=== PATIENT | female | born 1930 | race Two or more races ===

== ENCOUNTER 2018-06-02 10:20 | Inpatient (IN) | payer MEDICARE, MEDICAID ==
[~2018-06-02] VITALS: Ht 165.1 cm; Wt 81.6 kg
--- NOTE | 2018-06-02 10:35 | Emergency Room Report ---
History of Present Illness General Chief Complaint: Back Pain-No Injury Source: Patient Present Illness HPI Patient present with complaints of swelling to both of her legs Patient reports that she has had back problems in the past however over the past 2-3 days she has had increased pain with standing up this morning was unable to ambulate Patient reports that she has arrived here from [place] 2 weeks ago does not have a physician here Denies any chest pain she does get some shortness of breath with increased exertion Patient reports taking pain medicine for her lower back Denies any other cardiac medications Denies any neuropathy denies any loss of control of bowel/urination Allergies: Coded Allergies: STREPTOMYCIN (Verified Allergy, Unknown, 06/02/18) Patient History Past Medical History: see triage record Pertinent Family History: none Last Menstrual Period: NA Reviewed Nursing Documentation: PMH: Agreed; PSxH: Agreed Nursing Documentation-PMH Past Medical History: No History, Except For Hx Cardiac Problems: Yes - HIGH CHOLESTEROL Hx Hypertension: Yes Hx Diabetes: Yes Review of Systems All Other Systems: negative except mentioned in HPI Physical Exam Vital Signs Date Time Temp Pulse Resp B/P (MAP) Pulse Ox O2 Delivery O2 Flow Rate FiO2 06/02/18 10:16 97.7 65 18 117/60 98 Room Air Sp02 EP Interpretation: reviewed, normal General Appearance: mild distress - In pain Head: normocephalic, atraumatic Eyes: bilateral eye PERRL, bilateral eye EOMI ENT: hearing grossly normal, normal pharynx, TMs + canals normal, uvula midline Neck: full range of motion, supple, no meningismus, no bony tend Respiratory: lungs clear, normal breath sounds, no rhonchi, no respiratory distress, no retraction, no accessory muscle use Cardiovascular #1: normal peripheral pulses, regular rate, rhythm, no gallop, no JVD, no murmur Gastrointestinal: normal bowel sounds, non tender, soft, no mass, no organomegaly, non-distended, no guarding, no hernia, no pulsatile mass, no rebound Genitourinary: no CVA tenderness Musculoskeletal: other - Increased discomfort in the right posterior superior iliac crest on palpation, midline does not show any step-offs patient able to extend and flex both feet, right lower back pain increase with flexion of the hip Neurologic: oriented x3, responsive, 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 III-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 nml as tested, sensory intact Psychiatric: mood/affect normal Skin: warm/dry, palpation normal, other - Dependent edema both ankles and feet Lymphatic: normal inspection, no adenopathy Medical Decision Making Diagnostic Impression: Primary Impression: Intractable back pain Additional Impressions: Weakness Unable to ambulate ER Course Multiple differentials considered Including but not limited to neurological, neurosurgical, orthopedic, infectious pathology Patient does have history of previous back disease There are no focal findings at this time requiring emergency MRI however patient has continued discomfort Given her age and comorbidities requires further inpatient care and evaluation Labs Test 06/02/18 10:32 06/02/18 11:07 White Blood Count 3.8 K/UL (4.8-10.8) Red Blood Count 4.62 M/UL (4.20-5.40) Hemoglobin 12.2 G/DL (12.0-16.0) Hematocrit 38.7 % (37.0-47.0) Mean Corpuscular Volume 84 FL (80-99) Mean Corpuscular Hemoglobin 26.5 PG (27.0-31.0) Mean Corpuscular Hemoglobin Concent 31.6 G/DL (32.0-36.0) Red Cell Distribution Width 12.7 % (11.6-14.8) Platelet Count 174 K/UL (150-450) Mean Platelet Volume 7.6 FL (6.5-10.1) Neutrophils (%) (Auto) 57.9 % (45.0-75.0) Lymphocytes (%) (Auto) 24.6 % (20.0-45.0) Monocytes (%) (Auto) 13.2 % (1.0-10.0) Eosinophils (%) (Auto) 3.3 % (0.0-3.0) Basophils (%) (Auto) 1.0 % (0.0-2.0) Sodium Level 143 MMOL/L (136-145) Potassium Level 5.0 MMOL/L (3.5-5.1) Chloride Level 110 MMOL/L (98-107) Carbon Dioxide Level 27 MMOL/L (21-32) Anion Gap 7 mmol/L (5-15) Blood Urea Nitrogen 22 mg/dL (7-18) Creatinine 1.2 MG/DL (0.55-1.30) Estimat Glomerular Filtration Rate mL/min (>60) Glucose Level 172 MG/DL (74-106) Calcium Level 8.9 MG/DL (8.5-10.1) Total Bilirubin 0.5 MG/DL (0.2-1.0) Aspartate Amino Transf (AST/SGOT) 19 U/L (15-37) Alanine Aminotransferase (ALT/SGPT) 21 U/L (12-78) Alkaline Phosphatase 57 U/L (46-116) Total Creatine Kinase 134 U/L (26-308) Creatine Kinase MB 1.1 NG/ML (0.0-3.6) Creatine Kinase MB Relative Index 0.8 Troponin I 0.000 ng/mL (0.000-0.056) Pro-B-Type Natriuretic Peptide 614 pg/mL (0-125) Total Protein 6.4 G/DL (6.4-8.2) Albumin 2.9 G/DL (3.4-5.0) Globulin 3.5 g/dL Albumin/Globulin Ratio 0.8 (1.0-2.7) Lipase 264 U/L (73-393) Urine Color Pale yellow Urine Appearance Clear Urine pH 5 (4.5-8.0) Urine Specific [place] 1.010 (1.005-1.035) Urine Protein Negative (NEGATIVE) Urine Glucose (UA) Negative (NEGATIVE) Urine Ketones Negative (NEGATIVE) Urine Blood Negative (NEGATIVE) Urine Nitrite Negative (NEGATIVE) Urine Bilirubin Negative (NEGATIVE) Urine Urobilinogen Normal MG/DL (0.0-1.0) Urine Leukocyte Esterase 2+ (NEGATIVE) Urine RBC 2-4 /HPF (0 - 2) Urine WBC 2-4 /HPF (0 - 2) Urine Squamous Epithelial Cells Few /LPF (NONE/OCC) Urine Bacteria Few /HPF (NONE) Urine Hyaline Casts 0-2 /LPF (NONE) EKG Diagnostic Results Rate: normal Rhythm: NSR ST Segments: no acute changes Rhythm Strip Diag. Results EP Interpretation: yes Rate: 78 Rhythm: NSR, no PVC's, no ectopy Chest X-Ray Diagnostic Results Chest X-Ray Diagnostic Results : Chest X-Ray Ordered: Yes # of Views/Limited/Complete: 1 View Indication: Chest Pain EP Interpretation: Yes Interpretation: no consolidation, no effusion, no pneumothorax Impression: No acute disease Electronically Signed by: Ivett Alvarez, DO CT/MRI/US Diagnostic Results CT/MRI/US Diagnostic Results : Impression CT L-spineIMPRESSION: Moderate degenerative changes of the lumbar spine as described above. Suggestion of a spinal stenosis within the mid to lower lumbar spine. Limited evaluation due to body habitus Last Vital Signs Date Time Temp Pulse Resp B/P (MAP) Pulse Ox O2 Delivery O2 Flow Rate FiO2 06/02/18 10:16 97.7 65 18 117/60 98 Room Air Status: improved Disposition: ADMITTED INPATIENT Condition: Serious Ivett Alvarez DO Jun 02, 2018 10:35
[2018-06-02 10:51] VITALS: BP 121/61
[2018-06-02 10:57] LABS: EOSINOPHILS % (AUTO) 3.3 % (0.0-3.0); HEMATOCRIT 38.7 % (37.0-47.0); HEMOGLOBIN 12.2 G/DL (12.0-16.0); LYMPHOCYTES % (AUTO) 24.6 % (20.0-45.0); MEAN CORPUSCULAR VOLUME 84 FL (80-99); MONOCYTES % (AUTO) 13.2 % (1.0-10.0); NEUTROPHILS % (AUTO) 57.9 % (45.0-75.0); PLATELET COUNT 174 K/UL (150-450); RED BLOOD COUNT 4.62 M/UL (4.20-5.40); RED CELL DISTRIBUTION WIDTH 12.7 % (11.6-14.8); WHITE BLOOD COUNT 3.8 K/UL (4.8-10.8)
[2018-06-02 11:11] LABS: ANION GAP 7 mmol/L (5-15); BLOOD UREA NITROGEN 22 mg/dL (7-18); CALCIUM 8.9 MG/DL (8.5-10.1); CARBON DIOXIDE 27 MMOL/L (21-32); CHLORIDE 110 MMOL/L (98-107); CREATININE 1.2 MG/DL (0.55-1.30); SODIUM 143 MMOL/L (136-145)
[2018-06-02 11:24] LABS: APPEARANCE,URINE CLEAR; BILIRUBIN, URINE NEGATIVE (NEGATIVE); COLOR,URINE PALE YELLOW; GLUCOSE, URINE (UA) NEGATIVE (NEGATIVE); KETONES,URINE NEGATIVE (NEGATIVE); LEUKOCYTE ESTERASE ,URINE 2+ (NEGATIVE); NITRITE,URINE NEGATIVE (NEGATIVE); PH,URINE 5 (4.5-8.0); PROTEIN,URINE NEGATIVE (NEGATIVE); UROBILINOGEN,URINE NORMAL MG/DL (0.0-1.0)
--- NOTE | 2018-06-02 11:25 | Diagnostic Imaging Report ---
Indication: Back pain Technique: Continuous helical transaxial imaging of the lumbar spine was obtained from the lung bases to the pubic symphysis. No IV contrast was administered. Coronal 2-D reformats were also obtained. Study obtained in a Siemens sensation [address] Total Dose length Product (DLP): 760.[address] Dose Index Volume (CTDIvol): 23.97 mGy Comparison: None Findings: No definite fracture identified. There is moderate to severe discogenic disease degenerative in nature characterized by narrowing and vacuum phenomena. Endplate and facet spur formation and hypertrophy noted at multiple levels. There is no malalignment. There is suspected stenosis of the spinal canal within the mid to lower lumbar regions. This is not evaluated well on this examination. Furthermore, there is considerable loss of detail with the mottling artifact, diminished keinni-td-lukkx ratio and diminished resolution presumably on the basis of body habitus. Moderate mural calcification of aorta and iliac arteries noted. Extensive diverticula noted within the visualized part of the colon. IMPRESSION: Moderate degenerative changes of the lumbar spine as described above. Suggestion of a spinal stenosis within the mid to lower lumbar spine. Limited evaluation due to body habitus The CT scanner at [facility] is accredited by the [employer] and the scans are performed using dose optimization techniques as appropriate to a performed exam including Automatic Exposure control.
[2018-06-02 11:41] LABS: ALANINE AMINOTRANSFERASE 21 U/L (12-78); ALBUMIN 2.9 G/DL (3.4-5.0); ALBUMIN/GLOBULIN RATIO 0.8 (1.0-2.7); ALKALINE PHOSPHATASE 57 U/L (46-116); ASPARTATE AMINO TRANSFERASE 19 U/L (15-37); BILIRUBIN,TOTAL 0.5 MG/DL (0.2-1.0); CKMB 1.1 NG/ML (0.0-3.6); CREATINE KINASE 134 U/L (26-308)
--- NOTE | 2018-06-02 12:11 | Diagnostic Imaging Report ---
Indication: chest pain Comparison: None A single view chest radiograph was obtained. Findings: Mild interstitial edema is suspected with prominent vascularity and heart size. Bones are osteopenic. IMPRESSION: CHF suspected
[2018-06-02] MEDS ORDERED: FUROSEMIDE40 MG ORAL (12:23)
[2018-06-02] MEDS ORDERED: METFORMIN500 MG/5 M PO (12:23)
[2018-06-02] MEDS ORDERED: DOCUSATE SODIU100 MG ORAL (13:02)
[2018-06-02] MEDS ORDERED: CRESTOR10 M2 ORAL (13:07)
[2018-06-02] MEDS ORDERED: ZANTAC150 MG ORAL (13:07)
[2018-06-02] MEDS ORDERED: BENICAR40 MG ORAL (13:07)
[2018-06-02] MEDS ORDERED: VITAMIN D1000 UNI1 ORAL (13:07)
[2018-06-02] MEDS ORDERED: GINKGO BILOBA120 M1 PO (13:07)
[2018-06-02] MEDS ORDERED: MEDROL DOSEPAK4 MG ORAL (13:07)
[2018-06-02] MEDS ORDERED: PERCOCET 5-3251 EACH ORAL (13:07)
[2018-06-02] MEDS ORDERED: CHEWABLE-VITE1 EAC1 PO (13:07)
[2018-06-02] MEDS ORDERED: LEVEMIR100 UNIT/1 SUBQ (13:07)
[2018-06-02] MEDS ORDERED: LORAZEPAM0.5 MG ORAL (13:07)
[2018-06-02] MEDS ORDERED: VERAPAMIL HCL120 MG PO (13:07)
[2018-06-02] MEDS ORDERED: AMBIEN10 M1 ORAL (13:07)
[2018-06-02] MEDS ORDERED: Zolpidem 5mg tab ORAL PRN (13:15)
[2018-06-02 13:23] VITALS: BP 104/70
[2018-06-02] MEDS: traMADol 50mg tab ORAL PRN ×2 (15:17→21:45)
[2018-06-02] MEDS: Heparin 5000 units/ml inj SUBQ SCH ×2 (15:29→21:46)
[2018-06-02 16:00] VITALS: BP 109/72
[2018-06-02] MEDS: NovoLOG Insulin Flexpen SUBQ SCH ×2 (17:50→21:48)
[2018-06-02] MEDS ORDERED: Docusate 100mg cap ORAL PRN (19:59)
[2018-06-02] MEDS ORDERED: LORazepam 0.5mg tab ORAL PRN (19:59)
[2018-06-02 20:00] VITALS: BP 116/63
[2018-06-02] MEDS ORDERED: Zolpidem 5mg tab ORAL SCH (21:00)
[2018-06-02] MEDS ORDERED: Furosemide 40mg tab ORAL SCH (21:00)
[2018-06-02] MEDS: Atorvastatin 20mg tab ORAL SCH (21:45)
[2018-06-02] MEDS: Lyrica 75mg cap ORAL SCH (21:45)
[2018-06-03] VITALS (7 sets, daily range): BP systolic 99–118; BP diastolic 51–63
--- NOTE | 2018-06-03 02:45 | History and Physical Report ---
DATE OF ADMISSION: 06/02/2018 HISTORY OF PRESENT ILLNESS: This is an elderly 88-year-old female who has recently moved from [place] to [place] because she has a family, came to the emergency room for having intractable back pain and bilateral knee pain. The patient used to walk, but she has a very hard time. Her pain level is all the time 8 to 10. When in [place], the patient was walking without a cane or walker with difficulty and having a lot of pain. PAST MEDICAL HISTORY: Significant for diabetes, hypertension, CHF, GERD, chronic severe arthritis, and bilateral knee surgery. MEDICATIONS: She is taking vitamin D, Colace, and Lasix. She is taking insulin Levemir, does not remember the dose, metformin 500 b.i.d., dose was changed, Crestor, verapamil, and Ambien. SOCIAL HISTORY: The patient lives at home with her daughter. REVIEW OF SYSTEMS: Generalized weakness, tired, chronic pain, it is progressively getting worse. She is also developing leg edema and chronic back pain and also leg pain. PHYSICAL EXAMINATION: GENERAL: This is an elderly obese female, currently complaining a lot of pain and it is 8/10 especially on the back and 6/10 on both legs. The daughter is at bedside. VITAL SIGNS: Her blood pressure is 104/70, pulse 67, respirations 19, and temperature 97.1. SKIN: Good skin turgor. HEENT: AT/NC. EOMI. PERRLA. NECK: Supple. No JVD. CHEST: Bilateral decreased breath sounds. CARDIOVASCULAR: Irregular rhythm. No gallop. No murmur. ABDOMEN: Soft. EXTREMITIES: CCE. NEUROLOGIC: The patient has generalized weakness. GENITOURINARY: Deferred. LABORATORY EXAMINATION: White count 3.8, hemoglobin 12, hematocrit 38, and platelets are 174,000. Chemistry - sodium 143, potassium 5, BUN 22, creatinine 1.2, and glucose is 172. Hemoglobin A1c 7.6. Troponin 0.0. BNP was 614. Albumin 2.9. EKG, normal sinus rhythm. The patient had a chest x-ray showing . She also had a CT of the spine showing moderate degenerative change in the lumbar spine as described above within the mid and lower lumbar spine. ASSESSMENT: 1. Chronic intractable back pain. 2. CHF. 3. Diabetes. 4. Hypertension. 5. Comorbid obesity. 6. Edema. PLAN: We will add Levemir. We will add sliding scale. Continue Ambien. Add Mobic. Add also Lyrica for diabetic neuropathy. Discussed with the daughter. Also add lidocaine patch or Voltaren Gel and consider pain management. David Strange M.D. DR: LEIGH JOB#: [id number] CC:
[2018-06-03] MEDS: traMADol 50mg tab ORAL PRN ×2 (06:13→21:53)
[2018-06-03] MEDS: Heparin 5000 units/ml inj SUBQ SCH ×3 (06:14→21:57)
[2018-06-03] MEDS: NovoLOG Insulin Flexpen SUBQ SCH ×4 (06:23→22:08)
--- NOTE | 2018-06-03 08:57 | Consultation ---
History of Present Illness General Date patient seen: Jun 03, 2018 Chief Complaint: Present Illness Allergies: Coded Allergies: STREPTOMYCIN (Verified Allergy, Unknown, 06/02/18) Medication History Scheduled Cholecalciferol (Vitamin D3)* (Vitamin D*), 1,000 UNIT ORAL DAILY, (Reported) Docusate Sodium* (Docusate Sodium*), 100 MG ORAL DAILY, (Reported) Furosemide* (Lasix*), 40 MG ORAL DAILY, (Reported) Insulin Detemir (Levemir), 0 SUBQ BEDTIME, (Reported) Lorazepam* (Lorazepam*), 0.5 MG ORAL THREE TIMES A DAY, (Reported) Methylprednisolone (Methylprednisolone*), 4 MG ORAL DIRECTED, (Reported) Olmesartan Medoxomil (Benicar), 40 MG ORAL DAILY, (Reported) Ranitidine Hcl* (Zantac*), 150 MG ORAL DAILY, (Reported) Rosuvastatin Calcium* (Crestor*), 10 MG ORAL DAILY, (Reported) Verapamil Hcl (Verapamil Hcl), 120 MG PO TWICE A DAY, (Reported) Scheduled PRN Oxycodone/Acetaminophen 5-325* (Percocet 5-325 Mg Tablet*), 1 TAB ORAL Q6H PRN for For Pain, (Reported) Zolpidem Tartrate* (Ambien*), 10 MG ORAL HS PRN for Insomnia, (Reported) Miscellaneous Medications Ginkgo Biloba Extract (Ginkgo Biloba), 120 MG PO, (Reported) Metformin HCl (Metformin HCl), 500 MG PO, (Reported) Multivitamin (Chewable-Ervin), 1 EACH PO, (Reported) Patient History Healthcare decision maker Kathie Hull daughter and Ronda Lucas sister Resuscitation status Full Code Advanced Directive on File Physical Exam Last 24 Hour Vital Signs Date Time Temp Pulse Resp B/P (MAP) Pulse Ox O2 Delivery O2 Flow Rate FiO2 06/03/18 08:21 98.1 73 18 99/54 (69) 97 06/03/18 04:00 97.8 71 19 105/58 (74) 100 06/03/18 00:00 97.9 68 19 118/63 (81) 97 06/02/18 22:54 71 128/72 06/02/18 21:00 Room Air 06/02/18 20:00 98.1 71 19 116/63 (80) 93 06/02/18 16:20 Room Air 06/02/18 16:00 97.4 67 19 109/72 (84) 97 06/02/18 15:47 97.1 06/02/18 13:23 97.1 67 19 104/70 (81) 98 06/02/18 12:51 97.7 64 12 128/68 98 Room Air 06/02/18 10:51 97.7 58 18 121/61 99 Room Air 06/02/18 10:16 97.7 65 18 117/60 98 Room Air Intake and Output 06/02/18 06/03/18 19:00 07:00 Intake Total 925 ml Output Total 1600 ml Balance 925 ml -1600 ml IV Total 225 ml Other 700 ml Output Urine Total 1600 ml # Voids 3 # Bowel Movements 2 Laboratory Tests Test 06/02/18 10:32 06/02/18 11:07 06/03/18 06:30 White Blood Count 3.8 K/UL (4.8-10.8) L Red Blood Count 4.62 M/UL (4.20-5.40) Hemoglobin 12.2 G/DL (12.0-16.0) Hematocrit 38.7 % (37.0-47.0) Mean Corpuscular Volume 84 FL (80-99) Mean Corpuscular Hemoglobin 26.5 PG (27.0-31.0) L Mean Corpuscular Hemoglobin Concent 31.6 G/DL (32.0-36.0) L Red Cell Distribution Width 12.7 % (11.6-14.8) Platelet Count 174 K/UL (150-450) Mean Platelet Volume 7.6 FL (6.5-10.1) Neutrophils (%) (Auto) 57.9 % (45.0-75.0) Lymphocytes (%) (Auto) 24.6 % (20.0-45.0) Monocytes (%) (Auto) 13.2 % (1.0-10.0) H Eosinophils (%) (Auto) 3.3 % (0.0-3.0) H Basophils (%) (Auto) 1.0 % (0.0-2.0) Sodium Level 143 MMOL/L (136-145) Potassium Level 5.0 MMOL/L (3.5-5.1) Chloride Level 110 MMOL/L (98-107) H Carbon Dioxide Level 27 MMOL/L (21-32) Anion Gap 7 mmol/L (5-15) Blood Urea Nitrogen 22 mg/dL (7-18) H Creatinine 1.2 MG/DL (0.55-1.30) Estimat Glomerular Filtration Rate mL/min (>60) Glucose Level 172 MG/DL (74-106) H Hemoglobin A1c 7.6 % (4.3-6.0) H Calcium Level 8.9 MG/DL (8.5-10.1) Total Bilirubin 0.5 MG/DL (0.2-1.0) Aspartate Amino Transf (AST/SGOT) 19 U/L (15-37) Alanine Aminotransferase (ALT/SGPT) 21 U/L (12-78) Alkaline Phosphatase 57 U/L (46-116) Total Creatine Kinase 134 U/L (26-308) Creatine Kinase MB 1.1 NG/ML (0.0-3.6) Creatine Kinase MB Relative Index 0.8 Troponin I 0.000 ng/mL (0.000-0.056) Pro-B-Type Natriuretic Peptide 614 pg/mL (0-125) H Total Protein 6.4 G/DL (6.4-8.2) Albumin 2.9 G/DL (3.4-5.0) L Globulin 3.5 g/dL Albumin/Globulin Ratio 0.8 (1.0-2.7) L Lipase 264 U/L (73-393) Urine Color Pale yellow Urine Appearance Clear Urine pH 5 (4.5-8.0) Urine Specific [place] 1.010 (1.005-1.035) Urine Protein Negative (NEGATIVE) Urine Glucose (UA) Negative (NEGATIVE) Urine Ketones Negative (NEGATIVE) Urine Blood Negative (NEGATIVE) Urine Nitrite Negative (NEGATIVE) Urine Bilirubin Negative (NEGATIVE) Urine Urobilinogen Normal MG/DL (0.0-1.0) Urine Leukocyte Esterase 2+ (NEGATIVE) H Urine RBC 2-4 /HPF (0 - 2) H Urine WBC 2-4 /HPF (0 - 2) Urine Squamous Epithelial Cells Few /LPF (NONE/OCC) Urine Bacteria Few /HPF (NONE) Urine Hyaline Casts 0-2 /LPF (NONE) H Hepatitis A IgM Antibody Pending Hepatitis B Surface Antigen Pending Hepatitis B Core IgM Antibody Pending Hepatitis C Antibody Pending HIV (1&2) Antibody Rapid Negative (NEGATIVE) Height (Feet): 5 Height (Inches): 5.00 Weight (Pounds): 180 Medications Current Medications Medications (Trade) Dose Ordered Sig/Gloria Route PRN Reason Start Time Stop Time Status Last Admin Dose Admin Acetaminophen (Tylenol) 650 mg Q4H PRN ORAL Fever/Headache/Mild Pain 06/02/18 13:15 07/02/18 13:14 Atorvastatin Calcium (Lipitor) 20 mg BEDTIME ORAL 06/02/18 21:00 07/02/18 20:59 06/02/18 21:45 Dextrose (Dextrose 50%) 25 ml Q30M PRN IV Hypoglycemia 06/02/18 13:15 07/02/18 13:14 Dextrose (Dextrose 50%) 50 ml Q30M PRN IV Hypoglycemia 06/02/18 13:15 07/02/18 13:14 Docusate Sodium (Colace) 100 mg DAILY PRN ORAL Constipation 06/02/18 19:59 07/02/18 19:58 Furosemide (Lasix) 40 mg DAILY ORAL 06/03/18 09:00 07/03/18 08:59 Gabapentin (Neurontin) 100 mg BID ORAL 06/02/18 18:00 07/02/18 17:59 06/02/18 17:49 Heparin Sodium (Porcine) (Heparin 5000 units/ml) 5,000 units EVERY 8 HOURS SUBQ 06/02/18 14:00 07/02/18 13:59 06/03/18 06:14 Insulin Aspart (NovoLOG) BEFORE MEALS AND HS SUBQ 06/02/18 16:30 07/02/18 16:29 06/03/18 06:23 Irbesartan (Avapro) 300 mg DAILY ORAL 06/03/18 09:00 07/03/18 08:59 Lorazepam (Ativan) 0.5 mg Q8H PRN ORAL For Anxiety 06/02/18 19:59 06/09/18 19:58 Meloxicam (Mobic) 15 mg DAILY ORAL 06/03/18 09:00 07/03/18 08:59 Multivitamins (Multivitamins) 1 tab DAILY ORAL 06/03/18 09:00 07/03/18 08:59 Pregabalin (Lyrica) 75 mg Q12HR ORAL 06/02/18 21:00 07/02/18 20:59 06/02/18 21:45 Sodium Chloride 1,000 ml @ 75 mls/hr [id number] IV 06/02/18 13:15 06/03/18 13:00 06/03/18 06:09 Tramadol HCl (Ultram) 50 mg Q4H PRN ORAL Severe Pain (Pain Scale 7-10) 06/02/18 13:15 06/09/18 13:14 06/03/18 06:13 Verapamil HCl (Calan SR) 120 mg Q12HR ORAL 06/02/18 21:00 07/02/18 20:59 06/02/18 22:54 Vitamin D (Vitamin D) 1,000 intlu DAILY ORAL 06/03/18 09:00 07/03/18 08:59 Zolpidem Tartrate (Ambien) 5 mg HSPRN PRN ORAL Insomnia 06/02/18 13:15 06/09/18 13:14 06/03/18 00:02 Assessment/Plan Assessment/Plan (1) Lumbar Herniated disc (2) Lumbar Radiculopathy (3) Lumbar DDD (4) Lumbar Spondylosis (5) Muscle spasm (6) Morbid obesity seen dictated Cem Serrano Jun 03, 2018 08:57
[2018-06-03] MEDS ORDERED: Vitamin D 1000 IU Tab ORAL SCH (09:00)
[2018-06-03] MEDS ORDERED: Furosemide 40mg tab ORAL SCH (09:00)
[2018-06-03] MEDS ORDERED: Irbesartan 150mg tablet ORAL SCH (09:00)
[2018-06-03] MEDS ORDERED: Meloxicam 15 MG TAB ORAL SCH (09:00)
[2018-06-03] MEDS: Lyrica 75mg cap ORAL SCH ×2 (09:01→21:54)
--- NOTE | 2018-06-03 11:58 | Diagnostic Imaging Report ---
Indication: Back pain Comparison: None Findings: 3 views of the lumbar spine were obtained. Multilevel narrowing of the axial intervertebral disks and associated endplate and facet osteophytes are present. The bones are osteopenic. No malalignment identified. No acute fracture definitely seen. Aorta is moderately calcified. Impression: Moderate spondylosis. No acute injury appreciated.
--- NOTE | 2018-06-03 12:16 | Consultation ---
History of Present Illness General Chief Complaint: Back Pain-No Injury Present Illness HPI 88-year-old female with hx of anxiety and depression, who came to the emergency room for having intractable back pain and bilateral knee pain. the pt is taking Ativan for anxiety and insomnia. the pt currently is asking for more pain medications. the pt is anxious and irritable at times. the pt stated that tramadol does not work her. no si/hi. Allergies: Coded Allergies: STREPTOMYCIN (Verified Allergy, Unknown, 06/02/18) Medication History Scheduled Cholecalciferol (Vitamin D3)* (Vitamin D*), 1,000 UNIT ORAL DAILY, (Reported) Docusate Sodium* (Docusate Sodium*), 100 MG ORAL DAILY, (Reported) Furosemide* (Lasix*), 40 MG ORAL DAILY, (Reported) Insulin Detemir (Levemir), 0 SUBQ BEDTIME, (Reported) Lorazepam* (Lorazepam*), 0.5 MG ORAL THREE TIMES A DAY, (Reported) Methylprednisolone (Methylprednisolone*), 4 MG ORAL DIRECTED, (Reported) Olmesartan Medoxomil (Benicar), 40 MG ORAL DAILY, (Reported) Ranitidine Hcl* (Zantac*), 150 MG ORAL DAILY, (Reported) Rosuvastatin Calcium* (Crestor*), 10 MG ORAL DAILY, (Reported) Verapamil Hcl (Verapamil Hcl), 120 MG PO TWICE A DAY, (Reported) Scheduled PRN Oxycodone/Acetaminophen 5-325* (Percocet 5-325 Mg Tablet*), 1 TAB ORAL Q6H PRN for For Pain, (Reported) Zolpidem Tartrate* (Ambien*), 10 MG ORAL HS PRN for Insomnia, (Reported) Miscellaneous Medications Ginkgo Biloba Extract (Ginkgo Biloba), 120 MG PO, (Reported) Metformin HCl (Metformin HCl), 500 MG PO, (Reported) Multivitamin (Chewable-Ervin), 1 EACH PO, (Reported) Patient History Limited by: medical condition History Provided By: Patient, PMD Healthcare decision maker Kathie Hull daughter and Ronda Lucas sister Resuscitation status Full Code Advanced Directive on File Past Medical/Surgical History Past Medical/Surgical History: (1) Back pain (2) Leg pain (3) Weakness (4) Intractable back pain (5) Unable to ambulate Review of Systems Psychiatric: Reports: prior hx, anxiety, depressed feelings Physical Exam General Appearance: no apparent distress, alert Neurologic: oriented x 3, responsive, depressed affect Last 24 Hour Vital Signs Date Time Temp Pulse Resp B/P (MAP) Pulse Ox O2 Delivery O2 Flow Rate FiO2 06/03/18 09:00 99/54 06/03/18 09:00 73 99/54 06/03/18 09:00 Room Air 06/03/18 08:21 98.1 73 18 99/54 (69) 97 06/03/18 04:00 97.8 71 19 105/58 (74) 100 06/03/18 00:00 97.9 68 19 118/63 (81) 97 06/02/18 22:54 71 128/72 06/02/18 21:00 Room Air 06/02/18 20:00 98.1 71 19 116/63 (80) 93 06/02/18 16:20 Room Air 06/02/18 16:00 97.4 67 19 109/72 (84) 97 06/02/18 15:47 97.1 06/02/18 13:23 97.1 67 19 104/70 (81) 98 06/02/18 12:51 97.7 64 12 128/68 98 Room Air Intake and Output 06/02/18 06/03/18 19:00 07:00 Intake Total 925 ml 75 ml Output Total 1600 ml Balance 925 ml -1525 ml IV Total 225 ml 75 ml Other 700 ml Output Urine Total 1600 ml # Voids 3 # Bowel Movements 2 Laboratory Tests Test 06/03/18 06:30 Hepatitis A IgM Antibody Pending Hepatitis B Surface Antigen Pending Hepatitis B Core IgM Antibody Pending Hepatitis C Antibody Pending HIV (1&2) Antibody Rapid Negative (NEGATIVE) Height (Feet): 5 Height (Inches): 5.00 Weight (Pounds): 180 Medications Current Medications Medications (Trade) Dose Ordered Sig/Gloria Route PRN Reason Start Time Stop Time Status Last Admin Dose Admin Acetaminophen (Tylenol) 650 mg Q4H PRN ORAL Fever/Headache/Mild Pain 06/02/18 13:15 07/02/18 13:14 Atorvastatin Calcium (Lipitor) 20 mg BEDTIME ORAL 06/02/18 21:00 07/02/18 20:59 06/02/18 21:45 Dextrose (Dextrose 50%) 25 ml Q30M PRN IV Hypoglycemia 06/02/18 13:15 07/02/18 13:14 Dextrose (Dextrose 50%) 50 ml Q30M PRN IV Hypoglycemia 06/02/18 13:15 07/02/18 13:14 Docusate Sodium (Colace) 100 mg DAILY PRN ORAL Constipation 06/02/18 19:59 07/02/18 19:58 Furosemide (Lasix) 40 mg DAILY ORAL 06/03/18 09:00 07/03/18 08:59 06/03/18 09:01 Gabapentin (Neurontin) 100 mg BID ORAL 06/02/18 18:00 07/02/18 17:59 06/03/18 09:01 Heparin Sodium (Porcine) (Heparin 5000 units/ml) 5,000 units EVERY 8 HOURS SUBQ 06/02/18 14:00 07/02/18 13:59 06/03/18 06:14 Insulin Aspart (NovoLOG) BEFORE MEALS AND HS SUBQ 06/02/18 16:30 07/02/18 16:29 06/03/18 06:23 Irbesartan (Avapro) 300 mg DAILY ORAL 06/03/18 09:00 07/03/18 08:59 Lorazepam (Ativan) 0.5 mg Q8H PRN ORAL For Anxiety 06/02/18 19:59 06/09/18 19:58 Meloxicam (Mobic) 15 mg DAILY ORAL 06/03/18 09:00 07/03/18 08:59 06/03/18 09:00 Multivitamins (Multivitamins) 1 tab DAILY ORAL 06/03/18 09:00 07/03/18 08:59 06/03/18 09:01 Pregabalin (Lyrica) 75 mg Q12HR ORAL 06/02/18 21:00 07/02/18 20:59 06/03/18 09:01 Sodium Chloride 1,000 ml @ 75 mls/hr [id number] IV 06/02/18 13:15 06/03/18 13:00 06/03/18 06:09 Tramadol HCl (Ultram) 50 mg Q4H PRN ORAL Severe Pain (Pain Scale 7-10) 06/02/18 13:15 06/09/18 13:14 06/03/18 06:13 Verapamil HCl (Calan SR) 120 mg Q12HR ORAL 06/02/18 21:00 07/02/18 20:59 06/02/18 22:54 Vitamin D (Vitamin D) 1,000 intlu DAILY ORAL 06/03/18 09:00 07/03/18 08:59 06/03/18 09:00 Zolpidem Tartrate (Ambien) 5 mg HSPRN PRN ORAL Insomnia 06/02/18 13:15 06/09/18 13:14 06/03/18 00:02 Assessment/Plan Problem List: (1) Anxiety ICD Codes: F41.9 - Anxiety disorder, unspecified SNOMED: [id number] Status: stable, progressing Assessment/Plan ativan .5mg tid provided yolanda/Laura Chavira MD Jun 03, 2018 12:16
--- NOTE | 2018-06-03 14:58 | Consultation ---
Consult Note Consult Note Hematology Oncology Consultation RFC: Leukopenia REQ MD: Tessie Strange DOS: 06/03/18 ID 88y old male with complaints of swelling to both of her legs. Patient reports that she has had back problems in the past however over the past 2-3 days she has had increased pain with standing up this morning was unable to ambulate. Patient reports that she has arrived here from [place] 2 weeks ago does not have a physician here. Denies any chest pain she does get some shortness of breath with increased exertion. Patient reports taking pain medicine for her lower back. Denies any other cardiac medications. Denies any neuropathy denies any loss of control of bowel/urination. Noted to have a low wbc and heme was consultd. Allergies: STREPTOMYCIN (Verified Allergy, Unknown, 06/02/18) Past Medical History: see triage record Pertinent Family History: none Last Menstrual Period: NA Reviewed Nursing Documentation: PMH: Agreed; PSxH: Agreed Past Medical History: No History, Except For Hx Cardiac Problems: Yes - HIGH CHOLESTEROL Hx Hypertension: Yes Hx Diabetes: Yes ROS: negative except mentioned in HPI Last 24 Hour Vital Signs Date Time Temp Pulse Resp B/P (MAP) Pulse Ox O2 Delivery O2 Flow Rate FiO2 06/03/18 12:26 97.4 72 18 115/57 (76) 94 06/03/18 09:00 99/54 06/03/18 09:00 73 99/54 06/03/18 09:00 Room Air 06/03/18 08:21 98.1 73 18 99/54 (69) 97 06/03/18 04:00 97.8 71 19 105/58 (74) 100 06/03/18 00:00 97.9 68 19 118/63 (81) 97 06/02/18 22:54 71 128/72 06/02/18 21:00 Room Air 06/02/18 20:00 98.1 71 19 116/63 (80) 93 06/02/18 16:20 Room Air 06/02/18 16:00 97.4 67 19 109/72 (84) 97 06/02/18 15:47 97.1 General Appearance: mild distress - In pain Head: normocephalic, atraumatic Eyes: bilateral eye PERRL, bilateral eye EOMI ENT: hearing grossly normal, normal pharynx Neck: full range of motion, supple, no meningismus, no bony tend Respiratory: lungs clear, normal breath sounds Cardiovascular #1: normal peripheral pulses Gastrointestinal: normal bowel sounds, non tender, soft Genitourinary: no CVA tenderness Musculoskeletal: other - Increased discomfort Neurologic: oriented x3, responsive, executive officer III-XII nml as tested Psychiatric: mood/affect normal Skin: warm/dry, palpation normal, other - Dependent edema both ankles and feet Laboratory Tests Test 06/03/18 06:30 Hepatitis A IgM Antibody Pending Hepatitis B Surface Antigen Pending Hepatitis B Core IgM Antibody Pending Hepatitis C Antibody Pending HIV (1&2) Antibody Rapid Negative (NEGATIVE) Labs Test 06/02/18 10:32 06/02/18 11:07 White Blood Count 3.8 K/UL (4.8-10.8) Red Blood Count 4.62 M/UL (4.20-5.40) Hemoglobin 12.2 G/DL (12.0-16.0) Hematocrit 38.7 % (37.0-47.0) Mean Corpuscular Volume 84 FL (80-99) Mean Corpuscular Hemoglobin 26.5 PG (27.0-31.0) Mean Corpuscular Hemoglobin Concent 31.6 G/DL (32.0-36.0) Red Cell Distribution Width 12.7 % (11.6-14.8) Platelet Count 174 K/UL (150-450) Mean Platelet Volume 7.6 FL (6.5-10.1) Neutrophils (%) (Auto) 57.9 % (45.0-75.0) Lymphocytes (%) (Auto) 24.6 % (20.0-45.0) Monocytes (%) (Auto) 13.2 % (1.0-10.0) Eosinophils (%) (Auto) 3.3 % (0.0-3.0) Basophils (%) (Auto) 1.0 % (0.0-2.0) Sodium Level 143 MMOL/L (136-145) Potassium Level 5.0 MMOL/L (3.5-5.1) Chloride Level 110 MMOL/L (98-107) Carbon Dioxide Level 27 MMOL/L (21-32) Anion Gap 7 mmol/L (5-15) Blood Urea Nitrogen 22 mg/dL (7-18) Creatinine 1.2 MG/DL (0.55-1.30) Estimat Glomerular Filtration Rate mL/min (>60) Glucose Level 172 MG/DL (74-106) Calcium Level 8.9 MG/DL (8.5-10.1) Total Bilirubin 0.5 MG/DL (0.2-1.0) Aspartate Amino Transf (AST/SGOT) 19 U/L (15-37) Alanine Aminotransferase (ALT/SGPT) 21 U/L (12-78) Alkaline Phosphatase 57 U/L (46-116) Total Creatine Kinase 134 U/L (26-308) Creatine Kinase MB 1.1 NG/ML (0.0-3.6) Creatine Kinase MB Relative Index 0.8 Troponin I 0.000 ng/mL (0.000-0.056) Pro-B-Type Natriuretic Peptide 614 pg/mL (0-125) Total Protein 6.4 G/DL (6.4-8.2) Albumin 2.9 G/DL (3.4-5.0) Globulin 3.5 g/dL Albumin/Globulin Ratio 0.8 (1.0-2.7) Lipase 264 U/L (73-393) Urine Color Pale yellow Urine Appearance Clear Urine pH 5 (4.5-8.0) Urine Specific [place] 1.010 (1.005-1.035) Urine Protein Negative (NEGATIVE) Urine Glucose (UA) Negative (NEGATIVE) Urine Ketones Negative (NEGATIVE) Urine Blood Negative (NEGATIVE) Urine Nitrite Negative (NEGATIVE) Urine Bilirubin Negative (NEGATIVE) Urine Urobilinogen Normal MG/DL (0.0-1.0) Urine Leukocyte Esterase 2+ (NEGATIVE) Urine RBC 2-4 /HPF (0 - 2) Urine WBC 2-4 /HPF (0 - 2) Urine Squamous Epithelial Cells Few /LPF (NONE/OCC) Urine Bacteria Few /HPF (NONE) Urine Hyaline Casts 0-2 /LPF (NONE) Assessment and Recs: # Leukopenia -- appears to be acute on chronic, r/o infection --> hepatitis, hiv panel has been ordered, us of the abdomen as well --> neupogen 300mcg sq x1 if anc drops <1000 --> Intractable back pain # Anemia of chronic disease --> consider panel if persists --> cbc has been ordered # Weakness # Unable to ambulate # DJD Greatly apprecite consultation! Kleynberg,Girish L. MD Jun 03, 2018 14:58
--- NOTE | 2018-06-03 15:00 | Cardiology Report ---
APPROVED REPORT EKG Measurement Heart [id number] Sinus bradycardia Cannot rule out Anterior infarct, age undetermined Abnormal ECG
--- NOTE | 2018-06-03 18:00 | Progress Note ---
DATE: 06/03/2018 SUBJECTIVE: The patient is an elderly female, currently in the bed. Back pain and leg pain is improving. PHYSICAL EXAMINATION: VITAL SIGNS: Blood pressure is 116/51, pulse 78. No fever. CHEST: Bilaterally clear. CARDIOVASCULAR: Regular rhythm. ABDOMEN: Soft. EXTREMITIES: CCE. NEUROLOGIC: Neurologically generalized weakness. ASSESSMENT: 1. Chronic back pain. 2. Degenerative arthritis. 3. . 4. Obesity. 5. CHF. PLAN: 1. Continue current treatment. 2. PT and OT. 3. Continue pain management. David Strange M.D. DR: Vee JOB#: [id number] CC:
[2018-06-03] MEDS ORDERED: ACETAMINOPHEN325 M1 ORAL (21:28)
[2018-06-03] MEDS ORDERED: HEPARIN SO5000 UNIT2 SUBQ (21:29)
[2018-06-03] MEDS ORDERED: ATIVAN0.5 MG ORAL (21:30)
[2018-06-03] MEDS ORDERED: AVAPRO300 MG ORAL (21:30)
[2018-06-03] MEDS ORDERED: NOVOLOG100 UNIT/3 SUBQ (21:30)
[2018-06-03] MEDS ORDERED: MOBIC15 MG ORAL (21:31)
[2018-06-03] MEDS ORDERED: VITAMIN D1000 UNI1 ORAL (21:31)
[2018-06-03] MEDS ORDERED: TRAMADOL HCL50 MG ORAL (21:31)
[2018-06-03] MEDS: Atorvastatin 20mg tab ORAL SCH (21:51)
--- NOTE | 2018-06-04 03:15 | Consultation ---
DATE OF CONSULTATION: 06/03/2018 PAIN MANAGEMENT CONSULTATION CONSULTING PHYSICIAN: Robel Haynes M.D. REFERRING PHYSICIAN: David Strange M.D. PHYSICIAN HAND ETCHER HELPER: Bonny Mei CHIEF COMPLAINT: Low back pain. HISTORY OF PRESENT ILLNESS: The patient is an 88-year-old female who is being seen on the Med/Surg floor of [facility] for initial comprehensive pain management consultation. The patient has been having low back pain for the past 7 years, this is a chronic pain that she has off and on, describing the pain as a grabbing and burning pain, increased with movement, nothing has been relieving the pain, rating the pain 5/10 at this time and was brought into the hospital where CT scan of the lumbar spine was done showing moderate degenerative changes of the lumbar spine. She was started on Lyrica 75 mg twice a day, tramadol 50 mg tablet every 4 hours as needed for severe pain, which has helped to keep her comfortable. At this time, we were consulted so that the patient would have adequate pain control while here in the hospital. PAST MEDICAL HISTORY: Diabetes, hypertension, CHF, GERD, and arthritis. PAST SURGICAL HISTORY: Denies any surgery. SOCIAL HISTORY: Denies smoking tobacco, drinking alcohol, and IV drug abuse. ALLERGIES: Streptomycin. MEDICATIONS: Lasix, Levemir, lorazepam, methylprednisone, Benicar, Zantac, Crestor, verapamil, , Ambien, and metformin. REVIEW OF SYSTEMS: Denies rash, fever, chills, sweating, dizziness, drowsiness, or change in weight. No shortness of breath or chest pain. No nausea, vomiting, or blood in the stool or urine. No bowel or bladder incontinence. No dysuria. She is complaining of low back pain. PHYSICAL EXAMINATION: GENERAL: Alert, awake, and oriented x3. VITAL SIGNS: Blood pressure is , heart rate 72, oxygen saturation 96%, respiratory rate 18, and temperature 98.1 degrees Fahrenheit. HEENT: PERRLA. NECK: Range of motion is full in all directions. No tenderness to paracervical muscles. No adenopathy. LUNGS: Decreased breath sounds bilaterally. HEART: S1 and S2 regular. ABDOMEN: Obese. BACK: Range of motion is decreased in flexion and extension with tenderness to paraspinal muscles. No tenderness to trapezius or rhomboid muscles. EXTREMITIES: Upper and lower extremity range of motion is decreased due to the patient's condition. No cyanosis. No clubbing. No edema. Sensory intact. Reflexes are not obtainable. No adenopathy. ASSESSMENT AND PLAN: The patient is an 88-year-old female with lumbar degenerative disk disease, lumbar spondylosis, lumbar radiculopathy, lumbar herniated disc, muscle spasm, and morbid obesity. The patient will be continued on Tylenol as needed with Lyrica as scheduled. The patient was discussed with Dr. Haynes and Dr. Haynes concurred. We will follow the patient. Thank you very much for the courtesy of this consultation. Robel Haynes M.D. YEIMI Mei DR: Alex JOB#: [id number] CC:
--- NOTE | 2018-06-04 15:34 | Diagnostic Imaging Report ---
APPROVED REPORT CPT Code: 02385 Present Symptoms Comments: BILATERAL LEGS PAIN. BILATERAL: Imaging reveals a patent deep venous system bilaterally. There is no evidence of thrombus within the femoral, popliteal or tibial segments. The greater saphenous veins are also within normal limits. Doppler indicates normal spontaneous flow within these segments.
--- NOTE | 2018-06-05 08:11 | Discharge Summary ---
Discharge Summary Discharge Summary _ DATE OF ADMISSION: 06/02/2018 DATE OF DISCHARGE: 06/03/2018 REASON FOR ADMISSION: 88 years old female with past medical history of hypertension, diabetes mellitus , CHF, morbid obesity, chronic back pain, presented to emergency department with complaint of bilateral lower extremity edema and inability to ambulate. Edema worsened within the last couple of days. She denied chest pain , but admitted to shortness of breath with exertion . She denied perineal numbness or incontinence. Vital signs were stable. Laboratory workup revealed leukopenia WBC 3.8, stable hemoglobin and hematocrit. BUN 22, creatinine 1.2. Electrolytes and LFT stable. Glucose 172. Troponin negative. EKG revealed normal sinus rhythm, no acute ischemic changes. Pro BNP 614. Urinalysis +2 leukocyte esterase, occasional bacteria , no polyuria. Chest x-ray revealed no acute cardiopulmonary pathology. CT of the lumbar spine showed moderate degenerative changes of the lumbar spine. Suggestion of spinal stenosis presented mid to lower lumbar spine. Patient admitted with diagnosis of chronic intractable back pain probably due to degenerative arthritis, congestive heart failure, diabetes, hypertension, bilateral lower extremity edema, comorbid obesity. CONSULTANTS: supervisor billposting/oncologist Dr. Leblanc pain specialist Dr. Haynes [facility] COURSE: Patient admitted. Venous duplex bilateral lower extremity revealed no evidence of acute DVT. Lumbar spine x-ray revealed moderate spondylosis , but no acute injury. Pain management was addressed as per pain specialist recommendation. 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 Home medications resumed. Maintenance dose of Lasix was continued with close monitoring of volumes and cardiorenal parameters. Blood pressure was managed with current regimen and remained stable. Blood sugar was managed with long acting Levemir and sliding scale of short acting insulin as needed. Hemoglobin A1c -7.6 years , not at goal yet. Patient will need further optimization of anti-glycemic regimen . DVT prophylaxis provided. Supportive care provided. Bowel regimen instituted. Paper Mill Superintendent followed for leukopenia. As per supervisor billposting, leukopenia. was likely acute on chronic. Hepatitis panel HIV tests were negative. Abdominal ultrasound ordered to rule out liver disease. Hemoglobin and hematocrit remained stable. Patient was transferred to [facility] for further management per insurance purposes. FINAL DIAGNOSES: Lumbar degenerative disc disease Lumbar spondylosis Lumbar radiculopathy, Morbid obesity Hypertension Diabetes mellitus Congestive heart failure Leukopenia DISCHARGE MEDICATIONS: See Medication Reconciliation list. DISCHARGE INSTRUCTIONS: Patient was transferred to [facility] for further management per insurance purposes. I have been assigned to dictate discharge summary for this account. I was not involved in the patient's management. Lila Flores NP Jun 05, 2018 08:11
== END 2018-06-03 22:45 | disposition short-term general hospital (02) | DRG 552 ==
LOC: EDBD 10:20 → EMR 10:55 → 4E 11:45 → EDBEDREQ 12:17
DX: M51.16 Intervertebral disc disorders with radiculopathy, lumbar region (principal); M47.896 Other spondylosis, lumbar region; E66.01 Morbid (severe) obesity due to excess calories; I11.0 Hypertensive heart disease with heart failure; I50.9 Heart failure, unspecified; E11.9 Type 2 diabetes mellitus without complications; D72.819 Decreased white blood cell count, unspecified; Z88.1 Allergy status to other antibiotic agents; F41.9 Anxiety disorder, unspecified; M19.90 Unspecified osteoarthritis, unspecified site; Z79.4 Long term (current) use of insulin
CPT/HCPCS: 36415; 71045; 72020; 72131; 80053; 81003; 82550; 82553; 82962; 83036; 83690; 83880; 84484; 85025; 86703; 86705; 86709; 86803; 87340; 93005; 93970; 99285; J1815